=== PATIENT | female | born 1940 | race Caucasian/White ===

== ENCOUNTER → 2016-08-09 12:53 | Outpatient (CLI) | payer MEDICARE ==
[2014-02-04 07:46] VITALS: BMI 31.1
[~2016-08-09 12:53] MED LIST: AMBIEN10 MG PO; BENICAR HCT 20-1 TA1 PO; CARAFATE1 G PO; IMITREX50 MG PO; MULTI-DAY VITAM1 TAB PO; NORCO 10/325 TA1 TA1 PO; PHENERGAN25 M1 PO; PLAVIX75 MG PO; PRAVACHOL20 MG PO; PROTONIX20 MG PO; PROZAC40 MG PO; ZOFRAN ODT4 MG/UDTAB PO
== END | disposition home or self-care (01) ==
LOC: D.CT 12:53
DX: Z12.31 Encounter for screening mammogram for malignant neoplasm of breast (principal); K58.9 Irritable bowel syndrome, unspecified; G47.30 Sleep apnea, unspecified

== ENCOUNTER → 2016-08-23 19:39 | Outpatient (CLI) | payer MEDICARE ==
[2014-02-04 07:46] VITALS: BMI 31.1
== END | disposition home or self-care (01) ==
LOC: D.SLEEP 19:39
DX: G47.30 Sleep apnea, unspecified (principal)

== ENCOUNTER → 2016-08-29 16:32 | Outpatient (CLI) | payer MEDICARE ==
[2014-02-04 07:46] VITALS: BMI 31.1
== END | disposition home or self-care (01) ==
LOC: D.MAMMO 13:30
DX: Z12.31 Encounter for screening mammogram for malignant neoplasm of breast (principal)

== ENCOUNTER → 2016-11-16 08:28 | Outpatient (CLI) | payer MEDICARE ==
[2014-02-04 07:46] VITALS: BMI 31.1
== END | disposition home or self-care (01) ==
LOC: D.CT 08:00
DX: R10.9 Unspecified abdominal pain (principal)

== ENCOUNTER → 2017-05-02 07:53 | Outpatient (CLI) | payer MEDICARE ==
[2014-02-04 07:46] VITALS: BMI 31.1
[~2017-05-02 07:53] MED LIST changes: +ARICEPT10 MG PO; +ATIVAN1 MG PO; +CLARITIN 10 MG10 MG PO; +CYMBALTA60 MG PO; +DICLOFENAC SODIUM; +FEXOFENADINE H180 MG PO; +GABAPENTIN100 MG PO; +NORVASC2.5 MG PO; +ZOVIRAX800 MG PO
[2017-05-02 08:56] LABS: ALBUMIN 3.4 g/dL (3.4-5.0); BILIRUBIN - DIRECT 0.06 mg/dL (0.00-0.30); BILIRUBIN - INDIRECT 0.24 mg/dL (0.00-1.00); BILIRUBIN - TOTAL 0.3 mg/dL (0.2-1.3); PROTEIN - SERUM 7.1 g/dL (6.4-8.2)
== END | disposition home or self-care (01) ==
LOC: D.US 07:53
PROVIDERS: Internal Medicine Gastroenterology
DX: K76.0 Fatty (change of) liver, not elsewhere classified (principal)

== ENCOUNTER 2017-05-21 02:20 | Inpatient (IN) | payer MEDICARE ==
[~2017-05-21 02:20] MED LIST changes: -ARICEPT10 MG PO; -ATIVAN1 MG PO; -CLARITIN 10 MG10 MG PO; -CYMBALTA60 MG PO; -DICLOFENAC SODIUM; -FEXOFENADINE H180 MG PO; -GABAPENTIN100 MG PO; -NORVASC2.5 MG PO; -ZOVIRAX800 MG PO
[2017-05-21 03:02] LABS: BASOPHILS 0.3 % (0-2); EOSINOPHILS 0.8 % (0-7); HEMATOCRIT 42.2 % (36.0-48.0); HEMOGLOBIN 14.3 g/dL (12-16); IMMATURE GRANULOCYTES 0.3 % (0-5); LYMPHOCYTES 12.1 % (15-50); MCH 32.4 pg (26.0-34.0); MCHC 33.9 g/dL (31.0-37.0); MCV 95.5 fL (80.0-100.0); MEAN PLATELET VOLUME 8.9 fL (7.4-10.4); MONOCYTES 7.7 % (2-11); NEUTROPHILS 78.8 % (40-80); PLATELET COUNT 189 10x3/uL (130-400); RBC 4.42 10x6/uL (4.00-5.40); RDW 12.2 % (11.5-14.5); WBC 7.3 10x3/uL (4.8-10.8)
[2017-05-21 03:17] LABS: APTT 31.3 SECONDS (22.8-39.4); INR 0.9 (0.85-1.17)
[2017-05-21 03:21] LABS: ALBUMIN 3.4 g/dL (3.4-5.0); ALKALINE PHOSPHATASE 57 U/L (46-116); ALT (SGPT) 39 U/L (10-68); BILIRUBIN - TOTAL 0.16 mg/dL (0.2-1.3); CALC OSMOLALITY 280 mosm/kg (275-300); CALCIUM 8.8 mg/dL (8.5-10.1); CARBON DIOXIDE 31.8 mmol/L (21.0-32.0); CHLORIDE - SERUM 105 mmol/L (98-107); CREATININE - SERUM 0.9 mg/dL (0.6-1.3); GLUCOSE 133 mg/dL (74-106); POTASSIUM - SERUM 4.5 mmol/L (3.5-5.1); PROTEIN - SERUM 7.3 g/dL (6.4-8.2); SODIUM 140 mmol/L (136-145); UREA NITROGEN 12 mg/dL (7-18); eGFR NON AFRICAN AMERICAN 65 mL/min (90-120)
[2017-05-21 03:32] LABS: CKMB 0.5 U/L (0.0-3.6); CREATINE KINASE 53 UL (21-215)
[2017-05-21 03:34] LABS: TROPONIN-I < 0.017 ng/mL (0.000-0.060)
[2017-05-21 03:58] LABS: PHOSPHOROUS 3.6 mg/dL (2.5-4.9)
--- NOTE | 2017-05-21 05:54 | NUR ---
PT ARRIVED VIA STRETCHER TO ROOM 2113 AT 0540 HRS. PT DENIED ANY DISCOMFOFT. FAMILY AND PT STATED SHE HAS ACTIVE SHINGLES IN HER L EYE. STATED ER WS INFORMED. PT TRANSFERRED TO ROOM 2139. RATIONALE EXPLAINED TO PT AND FAMILY. WILL CONTINUE TO MONITOR.
[2017-05-21 06:08] VITALS: BP 162/71; BMI 22.7
[2017-05-21] MEDS ORDERED: ATIVAN1 MG PO (06:30)
[2017-05-21] MEDS ORDERED: CLARITIN 10 MG10 MG PO (06:30)
[2017-05-21] MEDS ORDERED: CYMBALTA60 MG PO (06:31)
[2017-05-21] MEDS ORDERED: ARICEPT10 MG PO (06:32)
[2017-05-21] MEDS ORDERED: ZOVIRAX800 MG PO (06:33)
[2017-05-21] MEDS ORDERED: DICLOFENAC SODIUM (06:50)
[2017-05-21 08:21] VITALS: BP 151/62
[2017-05-21 10:24] LABS: TROPONIN-I 0.056 ng/mL (0.000-0.060)
[2017-05-21 10:26] LABS: CREATINE KINASE 5 UL (21-215)
[2017-05-21 12:26] VITALS: BP 136/58
[2017-05-21 15:58] VITALS: BP 174/73
--- NOTE | 2017-05-21 16:12 | HP ---
PATIENT: MIL SCHULTZ MEDICAL RECORD: [id number] ACCOUNT: [id number] LOCATION:[address] : 42 ADMISSION DATE: 05/21/17 HISTORY AND PHYSICAL EXAMINATION HISTORY OF PRESENT ILLNESS: A 76-year-old white female presented to the Emergency Room upon day of admission with a closed head injury. The patient was in her usual state of health. She has had difficult time with shingles in the left eye that has been bothering her for the last week. She has been to the walk-in clinic several times, had some medication for this and states that she has had severe trigeminal pain in the left eye and has had increasing cough. The patient has had difficult time sleeping and whenever she stood up, this morning, she had a syncopal episode, felt dizzy, did fall and passed out. She is denying having heart palpitations at times, but she has had several episodes of near syncope and heart palpitations over the last month. The patient states she did feel weak, no incontinence did occur, no seizure activity. The patient was able to get a family member present to be able to bring her in and be further evaluated. CT of the head was done in the Emergency Room and further evaluation and the patient admitted to the floor for further evaluation and syncope. PAST MEDICAL HISTORY: Significant for migraines, TIA, vision changes, diet-controlled diabetes, hypertension, hyperlipidemia, GERD, depression, dementia, insomnia and hyperlipidemia. PAST SURGICAL HISTORY: Includes cataracts, partial removal on the left. She also has had appendectomy, tonsillectomy, hysterectomy, hemorrhoid surgery and bladder suspension multiple times. ALLERGIES: THE PATIENT IS ALLERGIC TO DILAUDID. MEDICATIONS: As listed in the MAR sheet. REVIEW OF SYSTEMS: Indicates no fever or chills. No chest pain, no shortness of breath. She has had some cough. No seizure activity, no incontinence. PHYSICAL EXAMINATION: VITAL SIGNS: At the time of history and physical is as below. GENERAL: She is a well-developed and well-nourished, anxious, tearful 76-year-old white female that is resting comfortably. HEENT: Has evidence of some erythema to the left eye. Pupils are otherwise equal, round and reactive to light. Extraocular movements are intact. Oral cavity and oropharynx otherwise clear. NECK: No cervical or pharyngeal. No nuchal rigidity. LUNGS: Coarse breath sounds, but otherwise clear. HEART: Regular rate and rhythm with / systolic ejection murmur. ABDOMEN: Soft, nontender, positive bowel sounds. No hepatosplenomegaly and no masses. EXTREMITIES: Arthritic changes noted. Trace edema in bilateral lower extremities. NEUROLOGIC: She is able to move all 4 extremities. Cranial nerves II through XII are grossly intact, some dizziness present. She has bruising on her left chin and a healing recent superficial laceration to her scalp. ASSESSMENT: HISTORY AND PHYSICAL [id number] MIL SCHULTZ 1. Syncope. 2. Atypical chest pain. 3. Recurrent nausea. 4. Abdominal pain. 5. Depression. 6. Mild dementia. PLAN: The patient will be restricted from driving in future at the present time. Cardiology evaluation obtained. We will change full liquid diet, IV fluids. Check laboratory appropriately. TRANSINT:[id number] Voice Confirmation ID: [id number] DOCUMENT ID: [id number] SALMA FONG MD at 1612 CC: [id number] DICTATION DATE: 05/21/17 1432 AOC OPERATIONS INTELLIGENCE OFFICER: 05/21/17 1506 ADM IN [facility] [address] [place] [address]
[2017-05-21 16:34] LABS: CKMB 1.2 U/L (0.0-3.6); CREATINE KINASE 64 UL (21-215)
[2017-05-21 16:42] LABS: TROPONIN-I < 0.017 ng/mL (0.000-0.060)
[2017-05-21 18:23] LABS: ALBUMIN 3.2 g/dL (3.4-5.0); BILIRUBIN - TOTAL 0.2 mg/dL (0.2-1.3); CALCIUM 8.5 mg/dL (8.5-10.1); CREATININE - SERUM 0.8 mg/dL (0.6-1.3); PROTEIN - SERUM 6.5 g/dL (6.4-8.2)
[2017-05-21 18:35] LABS: ANION GAP 10.8 mmol/L (8-16); POTASSIUM - SERUM 3.8 mmol/L (3.5-5.1)
[2017-05-21 19:00] VITALS: BP 187/82
--- NOTE | 2017-05-21 20:08 | NUR ---
PT IN BED RESTING QUEITLY. C/O N/V, PRN ZOFRAN GIVEN IV. DENIES ANY OTHER NEEDS AT THIS TIME. BED IN LOW POSITION, CALL LIGHT WITHIN REACH.
[2017-05-21 21:59] LABS: CKMB 1.1 U/L (0.0-3.6); CREATINE KINASE 66 UL (21-215); TROPONIN-I < 0.017 ng/mL (0.000-0.060)
--- NOTE | 2017-05-21 23:50 | NUR ---
PT C/O N/V. PT HAS NOT VOMITED BUT IS DRY HEAVING. TOLD PT THAT SHE IS NOT DUE FOR MORE ZOFRAN YET BUT THAT I WILL GET IT TO HER SOON POSSIBLE. PT STATED UNDERSTANDING. PT STATED SHE WOULD TRY DRINKING SOME SPRITE TO SEE IF IT WOULD HELP. GAVE PT COOL RAG. CHANGED PTS BEDDING DUE TO INCONTINENCE CAUSED BY THE DRY-HEAVING. DENIES ANY OTHER NEEDS AT THIS TIME. WILL CTM. BED IN LOW POSITION, CALL LIGHT WITHIN REACH.
[2017-05-22] VITALS: BP 142/85
[2017-05-22 04:00] VITALS: BP 164/62
[2017-05-22 04:24] LABS: BASOPHILS 0.4 % (0-2); EOSINOPHILS 0.9 % (0-7); HEMATOCRIT 41.5 % (36.0-48.0); HEMOGLOBIN 14.2 g/dL (12-16); LYMPHOCYTES 19.5 % (15-50); MCH 32.1 pg (26.0-34.0); MCHC 34.2 g/dL (31.0-37.0); MCV 93.9 fL (80.0-100.0); MEAN PLATELET VOLUME 8.9 fL (7.4-10.4); MONOCYTES 5.5 % (2-11); NEUTROPHILS 73.7 % (40-80); PLATELET COUNT 188 10x3/uL (130-400); RBC 4.42 10x6/uL (4.00-5.40); RDW 12.4 % (11.5-14.5)
[2017-05-22 04:31] LABS: WBC 5.3 10x3/uL (4.8-10.8)
[2017-05-22 04:57] LABS: ANION GAP 9.6 mmol/L (8-16); BILIRUBIN - TOTAL 0.29 mg/dL (0.2-1.3); CALCIUM 8.4 mg/dL (8.5-10.1); CARBON DIOXIDE 29.3 mmol/L (21.0-32.0); CREATININE - SERUM 0.8 mg/dL (0.6-1.3); MAGNESIUM - SERUM 1.9 mg/dL (1.8-2.4); PHOSPHOROUS 3.6 mg/dL (2.5-4.9); POTASSIUM - SERUM 3.9 mmol/L (3.5-5.1); PROTEIN - SERUM 6.8 g/dL (6.4-8.2); THYROID STIMULATING HORMONE 0.68 uIU/mL (0.36-3.74)
--- NOTE | 2017-05-22 07:44 | NUR ---
AM ROUNDING- RECEIVED REPORT FROM DISPENSING OPERATOR NURSE. PT IS CURRENTLY LAYING IN BED ON LEFT SIDE WITH EYES CLOSED RESTING. CURRENTLY IN AIRBORNE ISOLATION FOR SHINGLES PER REPORT. ON ROOM AIR. ON MONITOR SHOWING SR, HR 63. IV SEEN TO RIGHT AC WITH NS RUNNING AT 60CC. NO NEED AT THIS CURRENT TIME. WILL CONTINUE TO MONITOR AND CONTINUE WITH PLAN OF CARE.
[2017-05-22 08:11] VITALS: BP 143/67
--- NOTE | 2017-05-22 10:29 | NUR ---
PAGED LOBITO GARDNER TO SEE ABOUT RESTARTING PTS HOME MEDICATION EYE DROPS FOR LEFT EYE (SHINGLES). PT IS IN PAIN AND IS WANTING SOMETHING TO HELP RELIEVE PAIN. WILL AWAIT CALLBACK AND CONTINUE TO MONITOR.
--- NOTE | 2017-05-22 10:35 | NUR ---
RECEIVED CALLBACK FROM LOBITO GARDNER. LOBITO GARDNER STATES THAT IT IS OKAY FOR PT TO TAKE HOME EYE DROPS PRESCRIBED. LOBITO GARDNER ALSO GIVES ORDER TO CHANGE PTS PRN ZOFRAN ORDER TO EVERY 4 HOURS NEEDED. WILL PUT ORDERS IN GIVEN.
[2017-05-22 11:55] VITALS: BP 179/69
--- NOTE | 2017-05-22 12:54 | NUR ---
THIS NURSE ASSISTED PT TO BATHROOM (PT IS WEAK DUE TO N/V). PT ENCOURAGED TO USE BATHROOM LIGHT WHEN FINISHED SO STAFF CAN ASSIST HER BACK TO BED. PT AGREES. WILL CONTINUE TO MONITOR.
--- NOTE | 2017-05-22 16:42 | NUR ---
SCDS BROUGHT TO PTS ROOM ORDERED. PT IS CURRENTLY SITTING UP IN CHAIR VISITING WITH FRIEND. WILL PLACE SCDS ON PT ONCE PT GETS BACK TO BED.
--- NOTE | 2017-05-22 18:10 | NUR ---
PT IS CURRENTLY SITTING UP IN CHAIR EATING DINNER. FAMILY MEMBERS (DAUGHTER) AND GUEST ARE AT BEDSIDE. PT DENIES ANY NEED AT THIS TIME. WILL CONTINUE TO MONITOR.
[2017-05-22 19:00] VITALS: BP 180/66
--- NOTE | 2017-05-22 19:32 | NUR ---
PT AWAKE, ALERT, ORIENTED, TALKING ON CELL PHONE, DENIES ANY NEEDS. CONTINUE TO MONITOR CLOSELY. BED LOW, CALL LIGHT IN REACH, SIDE RAILS X 2, HOB 30 DEGREES.
[2017-05-23] VITALS: BP 150/72
[2017-05-23 04:00] VITALS: BP 152/75
[2017-05-23 05:49] LABS: BASOPHILS 0.4 % (0-2); EOSINOPHILS 2.9 % (0-7); HEMATOCRIT 42.1 % (36.0-48.0); HEMOGLOBIN 14.4 g/dL (12-16); IMMATURE GRANULOCYTES 0.2 % (0-5); LYMPHOCYTES 29.7 % (15-50); MCH 32.4 pg (26.0-34.0); MCHC 34.2 g/dL (31.0-37.0); MCV 94.6 fL (80.0-100.0); MEAN PLATELET VOLUME 9.1 fL (7.4-10.4); MONOCYTES 10.7 % (2-11); NEUTROPHILS 56.1 % (40-80); PLATELET COUNT 202 10x3/uL (130-400); RBC 4.45 10x6/uL (4.00-5.40); RDW 12.6 % (11.5-14.5); WBC 4.9 10x3/uL (4.8-10.8)
[2017-05-23 05:57] LABS: ALBUMIN 3.1 g/dL (3.4-5.0); ANION GAP 8.9 mmol/L (8-16); BILIRUBIN - TOTAL 0.3 mg/dL (0.2-1.3); CALCIUM 8.8 mg/dL (8.5-10.1); CARBON DIOXIDE 31.6 mmol/L (21.0-32.0); CREATININE - SERUM 0.8 mg/dL (0.6-1.3); POTASSIUM - SERUM 3.5 mmol/L (3.5-5.1)
[2017-05-23 06:49] VITALS: BMI 28.1
--- NOTE | 2017-05-23 07:15 | NUR ---
REPORT RECEIVED. RR EVEN AND UNLABORED, DIPLOMATIC COURIER AT BEDSIDE ASSISTING PT TO BATHROOM. PT REPORTS FEELING "BETTER" THIS MORNING. WILL CTM.
[2017-05-23 07:45] VITALS: BP 163/76
--- NOTE | 2017-05-23 10:07 | EC ---
PATIENT:MIL SCHULTZ DATE OF SERVICE: 05/21/17 SEX: F MEDICAL RECORD: [id number] DATE OF : 42 LOCATION:D. D.214 AGE OF PATIENT: 76 ADMISSION DATE: 05/22/17 REFERRING PHYSICIAN: INTERPRETING PHYSICIAN: AMILCAR PIERRE MD ECHOCARDIOGRAM REPORT ECHO CHARGES 4 ECHO COMPLETE CLINICAL DIAGNOSIS: ECHOCARDIOGRAPHIC MEASUREMENTS (adult normal given) AC root (d.<3.7cm) 2.6 cm LV Septum d (<1.2 cm> 1.2 cm Valve Excursion 1.6 cm LV Septum (systole) 1.8 cm Left Atria (s.<4.0cm> 4.1 cm LVPW d(<1.2cm) 1.1 cm RV (d.<2.3cm) 2.5 cm LVPW (sytole) 1.8 cm LV diastole(<5.6CM) 5.1 cm MV E-F(>70mm/sec) cm LV systole 3.1 cm LVOT Diameter 1.7 cm MV exc.(>10mm) cm Est.ejection fraction (50-75%) % Pericardial Effusion N DOPPLER: LVIT cm/sec A 59.0 cm/sec E 45.0 cm/sec LA cm/sec RVSP 44.0 mmHg LVOT 101 cm/sec AOP1/2T m/s Asc. Ao 147 cm/sec RVOT 52.0 cm/sec RA cm/sec PA 79.0 cm/sec AV Gradient Peak 8.7 mmHg AV Mean 4.6 mmHg AV Area 1.5 cm MV Gradient Peak 5.1 mmHg MV Mean 1.9 mmHg MV Area cm COMMENTS: Loom Changeover Operator: Shanique ESPINOZA COVERT Supervisor Hide House: Armin Pierre TAPE# PACS DATE OF SERVICE: 05/21/2017 PROCEDURE: Transthoracic echocardiogram. FINDINGS: 1. Left ventricle is normal size, normal function. Ejection fraction is 60%. 2. The mitral valve normal structurally. There is mild mitral regurgitation. 3. The left atrium is mildly dilated. 4. The aortic valve is normal. 5. Tricuspid valve has mild tricuspid regurgitation with an RVSP of 30 mmHg. ECHOCARDIOGRAM REPORT [id number] MIL SCHULTZ 6. The pulmonic valve has trace pulmonic insufficiency. 7. The right atrium is normal. 8. The right ventricle is normal. CONCLUSIONS: The patient has a structurally fairly normal heart. The inflow characteristics are consistent with mild diastolic dysfunction, otherwise no significant valvular or regional wall motion abnormalities. TRANSINT:[id number] Voice Confirmation ID: [id number] DOCUMENT ID: [id number] AMILCAR PIERRE MD at 1007 CC: [id number] DICTATION DATE: 05/21/17 1557 PRESIDENT SALES AND MARKETING: 05/21/17 191 ADM IN [place] [id number] [place] [id number]
[2017-05-23 12:53] VITALS: BP 160/73
[2017-05-23 16:07] VITALS: BP 178/86
[2017-05-23] MEDS ORDERED: FEXOFENADINE H180 MG PO (16:14)
[2017-05-23] MEDS ORDERED: GABAPENTIN100 MG PO (16:15)
[2017-05-23] MEDS ORDERED: NORVASC2.5 MG PO (16:15)
--- NOTE | 2017-05-23 18:45 | NUR ---
PT DISCHARGED. RR EVEN AND UNLABORED. D/C INSTRUCTIONS GIVEN AND SIGNED. PT VERBALIZED UNDERSTANDING. 3 PRESCRIPTIONS GIVEN TO PT. TELE REMOVED AND RETURNED TO ROUGH RIB GRADER. IV CATHETER REMOVED WITH CATHETER TIP INTACT. PT DENIES FURTHER NEEDS. WILL CALL WHEN TRANSPORT ARRIVES.
--- NOTE | 2017-06-26 10:49 | DS ---
PATIENT:MIL SCHULTZ :44 MEDICAL RECORD: [id number] DISCHARGE SUMMARY ADMISSION DATE: 05/22/17 DISCHARGE DATE: 05/23/17 This is a discharge dated 05/23/2017 from the inpatient hospital. DISCHARGE DIAGNOSES: 1. Dizziness. 2. Syncope. 3. Chest pain. 4. Left trigeminal neuralgia. 5. Mild dementia. 6. Hypertension. 7. Migraines. 8. Hyperlipidemia. 9. Gastroesophageal reflux disease. 10. Depression. CONSULTS THIS HOSPITALIZATION: 1. Cardiology with Oliverio Roy MD 2. Neurology with Sal Pat MD HOSPITAL COURSE: Full H&P is located elsewhere on the chart on this 76-year-old female who was admitted for evaluation of syncope and chest pain. Cardiology was consulted and she was seen by Dr. Roy. Echocardiogram was done with an EF of 60% and RVSP of 30. He felt that no further cardiology intervention was necessary, but recommended telemetry monitoring. She had no cardiac events. She was started on gabapentin for neuralgia-type pain. She continued on appropriate home medications. Electrolytes were managed by protocol. Her pain resolved with low-dose gabapentin. Dr. Pat from neurology felt this was left trigeminal neuralgia and recommended clinical observation. She was considered stable for discharge on 05/23/2017. DISCHARGE MEDICATIONS: As per discharge medication reconciliation. DISCHARGE DISPOSITION: The patient is discharged home. She will continue her current diet and level of activity. She will follow up with primary care in 2 weeks and be seen by [facility] house calls. She will follow up with specialists as directed. At least 30 minutes was spent in this discharge activity. TRANSINT:[id number] Voice Confirmation ID: [id number] DOCUMENT ID: [id number] Dictated By: LORIE FERNANDEZ I have interviewed/examined the above patient and agree with these documented findings. DISCHARGE SUMMARY REPORT [id number] MIL SCHULTZ MICHAEL MD at 1358 at 1049 CC: [id number] DICTATION DATE: 06/17/17 1559 SAW FEEDER: 06/17/17 1824 DIS IN 05/23/17 [place] [id number] [place] [address]
== END 2017-05-23 21:13 | disposition home or self-care (01) | DRG 74 ==
LOC: D.ER 02:20 → D.M2 05:10 → OBSVTIME 05:10 → D.M2 05:53
PROVIDERS: Emergency Medicine; ADMIT Family Medicine
DX: G50.0 Trigeminal neuralgia (principal); E11.9 Type 2 diabetes mellitus without complications; I10 Essential (primary) hypertension; E78.5 Hyperlipidemia, unspecified; K21.9 Gastro-esophageal reflux disease without esophagitis; F03.90 Unspecified dementia, unspecified severity, without behavioral disturbance, psychotic disturbance, mood disturbance, and anxiety; F32.9 Major depressive disorder, single episode, unspecified; S00.83XA Contusion of other part of head, initial encounter; W19.XXXA Unspecified fall, initial encounter; G47.00 Insomnia, unspecified; Z86.73 Personal history of transient ischemic attack (TIA), and cerebral infarction without residual deficits

== ENCOUNTER → 2017-11-14 09:20 | Outpatient (CLI) | payer MEDICARE ==
[~2017-11-14 09:20] MED LIST changes: +ARICEPT10 MG PO; +ATIVAN1 MG PO; +CLARITIN 10 MG10 MG PO; +CYMBALTA60 MG PO; +DICLOFENAC SODIUM; +FEXOFENADINE H180 MG PO; +GABAPENTIN100 MG PO; +NORVASC2.5 MG PO; +ZOVIRAX800 MG PO
[2017-11-14 10:41] LABS: ALBUMIN 3.6 g/dL (3.4-5.0); BILIRUBIN - DIRECT 0.12 mg/dL (0.00-0.30); BILIRUBIN - INDIRECT 0.32 mg/dL (0.00-1.00); BILIRUBIN - TOTAL 0.44 mg/dL (0.2-1.3); PROTEIN - SERUM 7.1 g/dL (6.4-8.2)
== END | disposition home or self-care (01) ==
LOC: D.US 11-01 09:30 → D.LAB 11-01 10:00 → D.US 09:20
PROVIDERS: Internal Medicine Gastroenterology
DX: K76.0 Fatty (change of) liver, not elsewhere classified (principal)

== ENCOUNTER → 2018-02-08 10:14 | Outpatient (CLI) | payer MEDICARE ==
[~2018-02-08 10:14] MED LIST changes: +CELEXA20 MG PO; +COZAAR25 MG PO; +COZAAR50 MG PO; +RANITIDINE HCL150 M1 PO
== END | disposition home or self-care (01) ==
LOC: D.CT 10:14
DX: M54.5 Low back pain (principal)

== ENCOUNTER 2018-03-13 15:44 | Emergency (ER) | payer MEDICARE ==
[~2018-03-13] VITALS: Ht 157.5 cm; Wt 70.9 kg
[~2018-03-13 15:44] MED LIST changes: -CELEXA20 MG PO; -COZAAR25 MG PO; -COZAAR50 MG PO; -RANITIDINE HCL150 M1 PO
[2018-03-13 16:02] VITALS: Ht 157.5 cm; Wt 70.9 kg
[2018-03-13 16:25] LABS: BASOPHILS 0.9 % (0-2); EOSINOPHILS 3.7 % (0-7); HEMATOCRIT 39.7 % (36.0-48.0); HEMOGLOBIN 13.9 g/dL (12-16); IMMATURE GRANULOCYTES 0.2 % (0-5); LYMPHOCYTES 32.5 % (15-50); MCH 32.5 pg (26.0-34.0); MCV 92.8 fL (80.0-100.0); MEAN PLATELET VOLUME 8.9 fL (7.4-10.4); NEUTROPHILS 52.7 % (40-80); PLATELET COUNT 182 10x3/uL (130-400); RBC 4.28 10x6/uL (4.00-5.40); WBC 5.4 10x3/uL (4.8-10.8)
[2018-03-13 17:03] LABS: ALBUMIN 3.7 g/dL (3.4-5.0); ALKALINE PHOSPHATASE 46 U/L (46-116); ALT (SGPT) 34 U/L (10-68); BILIRUBIN - TOTAL 0.37 mg/dL (0.2-1.3); CALC OSMOLALITY 269 mosm/kg (275-300); CALCIUM 8.6 mg/dL (8.5-10.1); CARBON DIOXIDE 28.8 mmol/L (21.0-32.0); CHLORIDE - SERUM 97 mmol/L (98-107); GLUCOSE 91 mg/dL (74-106); POTASSIUM - SERUM 4.4 mmol/L (3.5-5.1); PROTEIN - SERUM 7.6 g/dL (6.4-8.2); SODIUM 134 mmol/L (136-145); UREA NITROGEN 17 mg/dL (7-18); eGFR NON AFRICAN AMERICAN 57 mL/min (90-120)
[2018-03-13 17:15] LABS: CKMB 0.8 U/L (0.0-3.6); CREATINE KINASE 46 UL (21-215); MAGNESIUM - SERUM 1.9 mg/dL (1.8-2.4); THYROID STIMULATING HORMONE 1.27 uIU/mL (0.36-3.74); TROPONIN-I < 0.017 ng/mL (0.000-0.060)
[2018-03-13 18:42] VITALS: BP 144/63
== END 2018-03-13 18:43 | disposition home or self-care (01) ==
LOC: D.ER 15:44
PROVIDERS: Family Medicine
DX: R42 Dizziness and giddiness (principal); H53.8 Other visual disturbances; I10 Essential (primary) hypertension; F03.90 Unspecified dementia, unspecified severity, without behavioral disturbance, psychotic disturbance, mood disturbance, and anxiety; I45.10 Unspecified right bundle-branch block

== ENCOUNTER 2018-04-12 15:25 | Inpatient (IN) | payer MEDICARE ==
[~2018-04-12] VITALS: Ht 157.5 cm; Wt 72.7 kg
[2018-04-12 16:20] LABS: BASOPHILS 0.9 % (0-2); EOSINOPHILS 2.9 % (0-7); HEMOGLOBIN 13.3 g/dL (12-16); LYMPHOCYTES 23.3 % (15-50); MCH 32.8 pg (26.0-34.0); MCV 93.8 fL (80.0-100.0); MEAN PLATELET VOLUME 8.9 fL (7.4-10.4); MONOCYTES 7.8 % (2-11); NEUTROPHILS 65.1 % (40-80); PLATELET COUNT 191 10x3/uL (130-400); RBC 4.05 10x6/uL (4.00-5.40); RDW 12.7 % (11.5-14.5); WBC 4.5 10x3/uL (4.8-10.8)
[2018-04-12 16:48] LABS: ALBUMIN 3.4 g/dL (3.4-5.0); ANION GAP 13.2 mmol/L (8-16); BILIRUBIN - TOTAL 0.28 mg/dL (0.2-1.3); CALCIUM 8.6 mg/dL (8.5-10.1); CARBON DIOXIDE 28.6 mmol/L (21.0-32.0); CREATININE - SERUM 1.1 mg/dL (0.6-1.3); POTASSIUM - SERUM 3.8 mmol/L (3.5-5.1); PROTEIN - SERUM 7.1 g/dL (6.4-8.2)
[2018-04-12 16:56] LABS: THYROID STIMULATING HORMONE 2.58 uIU/mL (0.36-3.74)
[2018-04-12 20:00] VITALS: BP 165/83
[2018-04-12 20:14] VITALS: Ht 157.5 cm; Wt 72.7 kg
[2018-04-12] MEDS ORDERED: RANITIDINE HCL150 M1 PO (20:47)
[2018-04-12] MEDS ORDERED: CELEXA20 MG PO (20:48)
[2018-04-13] VITALS (7 sets, daily range): BP systolic 135–174; BP diastolic 42–88
[2018-04-13] MEDS ORDERED: COZAAR50 MG PO (03:02)
[2018-04-13 06:01] LABS: BASOPHILS 0.7 % (0-2); EOSINOPHILS 4.6 % (0-7); HEMATOCRIT 36.6 % (36.0-48.0); HEMOGLOBIN 12.5 g/dL (12-16); IMMATURE GRANULOCYTES 0.2 % (0-5); LYMPHOCYTES 37.8 % (15-50); MCH 32.2 pg (26.0-34.0); MCHC 34.2 g/dL (31.0-37.0); MCV 94.3 fL (80.0-100.0); MEAN PLATELET VOLUME 8.9 fL (7.4-10.4); NEUTROPHILS 46.7 % (40-80); PLATELET COUNT 193 10x3/uL (130-400); RBC 3.88 10x6/uL (4.00-5.40); RDW 12.8 % (11.5-14.5); WBC 4.1 10x3/uL (4.8-10.8)
[2018-04-13 06:06] LABS: ANION GAP 12.2 mmol/L (8-16); CALCIUM 8.1 mg/dL (8.5-10.1); POTASSIUM - SERUM 4.2 mmol/L (3.5-5.1)
[2018-04-13 17:12] LABS: CKMB 0.9 U/L (0.0-3.6); CREATINE KINASE 52 UL (21-215)
[2018-04-13 17:13] LABS: TROPONIN-I < 0.017 ng/mL (0.000-0.060)
[2018-04-13 22:43] LABS: CKMB 0.8 U/L (0.0-3.6); CREATINE KINASE 48 UL (21-215); TROPONIN-I < 0.017 ng/mL (0.000-0.060)
[2018-04-14 04:00] VITALS: BP 154/63
[2018-04-14 06:45] LABS: BASOPHILS 0.6 % (0-2); EOSINOPHILS 4.3 % (0-7); HEMATOCRIT 37.7 % (36.0-48.0); HEMOGLOBIN 12.9 g/dL (12-16); MCH 32.3 pg (26.0-34.0); MCHC 34.2 g/dL (31.0-37.0); MCV 94.3 fL (80.0-100.0); MONOCYTES 8.9 % (2-11); NEUTROPHILS 53.2 % (40-80); PLATELET COUNT 191 10x3/uL (130-400); RDW 12.7 % (11.5-14.5); WBC 4.6 10x3/uL (4.8-10.8)
[2018-04-14 07:20] LABS: CALCIUM 8.1 mg/dL (8.5-10.1); CARBON DIOXIDE 28.7 mmol/L (21.0-32.0); CHLORIDE - SERUM 105 mmol/L (98-107); CKMB 0.6 U/L (0.0-3.6); CREATINE KINASE 44 UL (21-215); CREATININE - SERUM 0.8 mg/dL (0.6-1.3); GLUCOSE 93 mg/dL (74-106); SODIUM 143 mmol/L (136-145); eGFR NON AFRICAN AMERICAN 74 mL/min (90-120)
[2018-04-14 07:28] LABS: CALC OSMOLALITY 283 mosm/kg (275-300); TROPONIN-I < 0.017 ng/mL (0.000-0.060); UREA NITROGEN 9 mg/dL (7-18)
[2018-04-14 08:58] VITALS: BP 174/80
[2018-04-14 11:37] VITALS: BP 155/66
[2018-04-14 16:02] VITALS: BP 163/69
[2018-04-14 20:30] VITALS: BP 161/83
[2018-04-15 04:30] VITALS: BP 173/72
[2018-04-15 07:43] LABS: BASOPHILS 0.7 % (0-2); EOSINOPHILS 4.9 % (0-7); HEMATOCRIT 37.7 % (36.0-48.0); LYMPHOCYTES 35.9 % (15-50); MCH 32.7 pg (26.0-34.0); MCHC 34.5 g/dL (31.0-37.0); MCV 94.7 fL (80.0-100.0); MONOCYTES 9.6 % (2-11); NEUTROPHILS 48.9 % (40-80); PLATELET COUNT 196 10x3/uL (130-400); RBC 3.98 10x6/uL (4.00-5.40); RDW 12.7 % (11.5-14.5); WBC 4.1 10x3/uL (4.8-10.8)
[2018-04-15 07:52] LABS: ANION GAP 12.3 mmol/L (8-16); CALCIUM 7.9 mg/dL (8.5-10.1); CARBON DIOXIDE 29.1 mmol/L (21.0-32.0); CREATININE - SERUM 0.8 mg/dL (0.6-1.3); POTASSIUM - SERUM 4.4 mmol/L (3.5-5.1)
[2018-04-15 08:58] VITALS: BP 183/82
[2018-04-15 12:02] VITALS: BP 135/66
[2018-04-15] MEDS ORDERED: COZAAR25 MG PO (15:14)
[2018-04-15 15:40] VITALS: BP 156/78
== END 2018-04-15 18:00 | disposition home or self-care (01) | DRG 918 ==
LOC: D.ER 15:25 → D.MS 17:46 → D.EDHOLD 17:46 → OBSVTIME 17:47 → D.MS 17:56 → D.M2 04-13 16:46 → D.MS 04-13 16:46 → D.M2 04-13 19:34
PROVIDERS: Family Medicine; Internal Medicine Nephrology
DX: T46.5X1A Poisoning by other antihypertensive drugs, accidental (unintentional), initial encounter (principal); R55 Syncope and collapse; I10 Essential (primary) hypertension; K21.9 Gastro-esophageal reflux disease without esophagitis; F03.90 Unspecified dementia, unspecified severity, without behavioral disturbance, psychotic disturbance, mood disturbance, and anxiety; D64.9 Anemia, unspecified; I95.9 Hypotension, unspecified

== ENCOUNTER 2018-04-23 10:15 | Observation (INO) | payer MEDICARE ==
[2018-04-23] VITALS (8 sets, daily range): BP systolic 113–156; BP diastolic 54–71
[~2018-04-23] VITALS: Ht 157.5 cm; Wt 7.3 kg
[~2018-04-23 10:15] MED LIST changes: +CELEXA20 MG PO; +COZAAR25 MG PO; +COZAAR50 MG PO; +RANITIDINE HCL150 M1 PO
[2018-04-23 12:54] LABS: BASOPHILS 0.5 % (0-2); EOSINOPHILS 2.2 % (0-7); HEMATOCRIT 37.3 % (36.0-48.0); HEMOGLOBIN 12.9 g/dL (12-16); IMMATURE GRANULOCYTES 0.2 % (0-5); LYMPHOCYTES 18.3 % (15-50); MCH 32.9 pg (26.0-34.0); MCHC 34.6 g/dL (31.0-37.0); MCV 95.2 fL (80.0-100.0); MEAN PLATELET VOLUME 8.7 fL (7.4-10.4); MONOCYTES 7.7 % (2-11); NEUTROPHILS 71.1 % (40-80); PLATELET COUNT 209 10x3/uL (130-400); RBC 3.92 10x6/uL (4.00-5.40); RDW 12.7 % (11.5-14.5); WBC 6.5 10x3/uL (4.8-10.8)
[2018-04-23 13:16] LABS: ALBUMIN 2.9 g/dL (3.4-5.0); ALKALINE PHOSPHATASE 52 U/L (46-116); ALT (SGPT) 24 U/L (10-68); CALC OSMOLALITY 277 mosm/kg (275-300); CALCIUM 8.7 mg/dL (8.5-10.1); CARBON DIOXIDE 32.5 mmol/L (21.0-32.0); CHLORIDE - SERUM 103 mmol/L (98-107); CREATINE KINASE 33 UL (21-215); CREATININE - SERUM 0.9 mg/dL (0.6-1.3); GLUCOSE 113 mg/dL (74-106); MAGNESIUM - SERUM 1.9 mg/dL (1.8-2.4); POTASSIUM - SERUM 4.8 mmol/L (3.5-5.1); PROTEIN - SERUM 7.1 g/dL (6.4-8.2); SODIUM 139 mmol/L (136-145); UREA NITROGEN 9 mg/dL (7-18); eGFR NON AFRICAN AMERICAN 65 mL/min (90-120)
[2018-04-23 13:17] LABS: TROPONIN-I < 0.017 ng/mL (0.000-0.060)
[2018-04-24 05:16] LABS: BASOPHILS 0.8 % (0-2); EOSINOPHILS 5.5 % (0-7); HEMATOCRIT 34.1 % (36.0-48.0); HEMOGLOBIN 11.7 g/dL (12-16); IMMATURE GRANULOCYTES 0.3 % (0-5); LYMPHOCYTES 24.7 % (15-50); MCH 32.2 pg (26.0-34.0); MCHC 34.3 g/dL (31.0-37.0); MCV 93.9 fL (80.0-100.0); MEAN PLATELET VOLUME 8.7 fL (7.4-10.4); MONOCYTES 9.7 % (2-11); PLATELET COUNT 202 10x3/uL (130-400); RBC 3.63 10x6/uL (4.00-5.40); RDW 12.3 % (11.5-14.5)
[2018-04-24 05:22] LABS: WBC 3.8 10x3/uL (4.8-10.8)
[2018-04-24 05:37] LABS: CARBON DIOXIDE 27.3 mmol/L (21.0-32.0); CHLORIDE - SERUM 103 mmol/L (98-107); CREATINE KINASE 36 UL (21-215); CREATININE - SERUM 0.9 mg/dL (0.6-1.3); MAGNESIUM - SERUM 1.7 mg/dL (1.8-2.4); SODIUM 139 mmol/L (136-145); TROPONIN-I < 0.017 ng/mL (0.000-0.060); UREA NITROGEN 10 mg/dL (7-18); eGFR NON AFRICAN AMERICAN 65 mL/min (90-120)
[2018-04-24 05:38] LABS: CALC OSMOLALITY 281 mosm/kg (275-300); GLUCOSE 180 mg/dL (74-106); POTASSIUM - SERUM 3.8 mmol/L (3.5-5.1)
[2018-04-24 07:09] VITALS: BP 117/55
[2018-04-24 09:00] VITALS: BP 158/64
[2018-04-24] MEDS ORDERED: COZAAR25 MG PO (09:41)
[2018-04-24] MEDS ORDERED: NEURONTIN 300300 MG PO (09:55)
[2018-04-24 12:12] VITALS: BP 154/67
[2018-04-24 13:30] VITALS: Ht 157.5 cm; Wt 7.3 kg
[2018-04-24 21:18] VITALS: BP 147/58
[2018-04-25] VITALS: BP 159/66
[2018-04-25 04:00] VITALS: BP 140/59
[2018-04-25 05:22] LABS: BASOPHILS 1.4 % (0-2); EOSINOPHILS 7.1 % (0-7); HEMATOCRIT 34.4 % (36.0-48.0); HEMOGLOBIN 11.9 g/dL (12-16); IMMATURE GRANULOCYTES 0.2 % (0-5); LYMPHOCYTES 29.5 % (15-50); MCH 32.3 pg (26.0-34.0); MCHC 34.6 g/dL (31.0-37.0); MCV 93.5 fL (80.0-100.0); MEAN PLATELET VOLUME 8.8 fL (7.4-10.4); NEUTROPHILS 50.8 % (40-80); PLATELET COUNT 213 10x3/uL (130-400); RBC 3.68 10x6/uL (4.00-5.40); RDW 12.3 % (11.5-14.5); WBC 4.4 10x3/uL (4.8-10.8)
[2018-04-25 05:49] LABS: ANION GAP 11.1 mmol/L (8-16); CALCIUM 8.1 mg/dL (8.5-10.1); CARBON DIOXIDE 27.9 mmol/L (21.0-32.0); CREATININE - SERUM 0.8 mg/dL (0.6-1.3)
[2018-04-25 08:36] VITALS: BP 164/68
[2018-04-25 11:41] VITALS: BP 145/42
== END 2018-04-25 12:35 | disposition home or self-care (01) ==
LOC: D.ER 10:15 → D.EDHOLD 14:18 → D.M2 14:18 → OBSVTIME 14:18 → D.M2 15:31
PROVIDERS: Emergency Medicine; Family Medicine; Internal Medicine Nephrology
DX: R55 Syncope and collapse (principal); I10 Essential (primary) hypertension; K21.9 Gastro-esophageal reflux disease without esophagitis; D64.9 Anemia, unspecified; F03.90 Unspecified dementia, unspecified severity, without behavioral disturbance, psychotic disturbance, mood disturbance, and anxiety

== ENCOUNTER → 2018-05-28 07:41 | Outpatient (CLI) | payer MEDICARE ==
[~2018-05-28 07:41] MED LIST changes: +NEURONTIN 300300 MG PO
[2018-05-28 08:40] LABS: ALBUMIN 3.3 g/dL (3.4-5.0); BILIRUBIN - DIRECT 0.08 mg/dL (0.00-0.30); BILIRUBIN - INDIRECT 0.09 mg/dL (0.00-1.00); BILIRUBIN - TOTAL 0.17 mg/dL (0.2-1.3); PROTEIN - SERUM 7.5 g/dL (6.4-8.2)
== END | disposition home or self-care (01) ==
LOC: D.LAB 05-16 09:15 → D.US 05-16 09:30
PROVIDERS: Internal Medicine Gastroenterology
DX: K76.0 Fatty (change of) liver, not elsewhere classified (principal)

== ENCOUNTER 2018-06-30 18:37 | Emergency (ER) | payer MEDICARE ==
[~2018-06-30] VITALS: Ht 157.5 cm; Wt 77.3 kg
[2018-06-30 18:47] VITALS: Ht 157.5 cm; Wt 77.3 kg
[2018-06-30 20:08] LABS: BASOPHILS 0.5 % (0-2); EOSINOPHILS 0.9 % (0-7); HEMOGLOBIN 13.2 g/dL (12-16); IMMATURE GRANULOCYTES 0.2 % (0-5); MCH 31.6 pg (26.0-34.0); MCHC 33.8 g/dL (31.0-37.0); MCV 93.3 fL (80.0-100.0); MEAN PLATELET VOLUME 8.7 fL (7.4-10.4); MONOCYTES 1.1 % (2-11); NEUTROPHILS 92.3 % (40-80); RBC 4.18 10x6/uL (4.00-5.40); RDW 12.4 % (11.5-14.5); WBC 4.4 10x3/uL (4.8-10.8)
[2018-06-30 20:11] LABS: PLATELET COUNT 140 10x3/uL (130-400)
[2018-06-30 20:24] LABS: ALBUMIN 3.1 g/dL (3.4-5.0); ANION GAP 10.4 mmol/L (8-16); BILIRUBIN - TOTAL 0.17 mg/dL (0.2-1.3); CALCIUM 8.4 mg/dL (8.5-10.1); POTASSIUM - SERUM 4.4 mmol/L (3.5-5.1); PROTEIN - SERUM 6.7 g/dL (6.4-8.2)
[2018-06-30 20:42] VITALS: BP 107/63
== END 2018-06-30 20:42 | disposition home or self-care (01) ==
LOC: D.ER 18:37
PROVIDERS: Family Medicine
DX: J40 Bronchitis, not specified as acute or chronic (principal); R53.81 Other malaise; R09.89 Other specified symptoms and signs involving the circulatory and respiratory systems; Z86.73 Personal history of transient ischemic attack (TIA), and cerebral infarction without residual deficits; E11.9 Type 2 diabetes mellitus without complications; I10 Essential (primary) hypertension; K21.9 Gastro-esophageal reflux disease without esophagitis

== ENCOUNTER → 2018-11-26 07:54 | Outpatient (CLI) | payer MEDICARE ==
[2018-11-26 09:07] LABS: ALBUMIN 3.4 g/dL (3.4-5.0); BILIRUBIN - DIRECT 0.07 mg/dL (0.00-0.30); BILIRUBIN - INDIRECT 0.28 mg/dL (0.00-1.00); BILIRUBIN - TOTAL 0.35 mg/dL (0.2-1.3); PROTEIN - SERUM 7.1 g/dL (6.4-8.2)
== END | disposition home or self-care (01) ==
LOC: D.US 07:54
PROVIDERS: Internal Medicine Gastroenterology
DX: K76.0 Fatty (change of) liver, not elsewhere classified (principal)

== ENCOUNTER 2019-01-27 08:00 | Outpatient (CLI) | payer MEDICARE ==
[2018-06-30 18:47] VITALS: BMI 31.1
== END 2019-01-27 23:59 | disposition home or self-care (01) ==
LOC: D.MAMMO 08:00
PROVIDERS: ATTEND Family Medicine
DX: Z12.31 Encounter for screening mammogram for malignant neoplasm of breast (principal)

== ENCOUNTER → 2019-06-10 08:00 | Outpatient (CLI) | payer MEDICARE ==
[~2019-06-10 08:00] MED LIST changes: +BACLOFEN10 MG PO; +PEPCID40 MG PO; +PROTONIX40 MG PO; +STERAPRED 5MG 125 MG PO; +TOPROL XL25 MG PO
[2019-06-10 10:11] LABS: ALBUMIN 3.5 g/dL (3.4-5.0); BILIRUBIN - DIRECT 0.08 mg/dL (0.00-0.30); BILIRUBIN - INDIRECT 0.36 mg/dL (0.00-1.00); BILIRUBIN - TOTAL 0.44 mg/dL (0.2-1.3); PROTEIN - SERUM 7.3 g/dL (6.4-8.2)
[2019-06-24 11:33] VITALS: BMI 33.0
== END | disposition home or self-care (01) ==
LOC: D.US 05-28 09:00 → D.LAB 05-28 09:30 → D.US 08:00
PROVIDERS: ATTEND Internal Medicine Gastroenterology
DX: K76.0 Fatty (change of) liver, not elsewhere classified (principal)

== ENCOUNTER 2019-06-24 09:12 | Outpatient (CLI) | payer MEDICARE ==
[~2019-06-24] VITALS: Ht 157.5 cm; Wt 81.8 kg
--- NOTE | ~2019-06-24 | HEMODYNAMI ---
PATIENT:MIL SCHULTZ MEDICAL RECORD: [id number] : 44 LOCATION:D.CAT ADMISSION DATE: 06/24/19 Generatedon:06/24/201913:09 Patient name: MIL SCHULTZ Patient #: [id number] SSN: [id number] : 1940 Date of study: 06/24/2019 Page: Of Hemodynamic Procedure Report Patient Data Patient Demographics Procedure consent was obtained First Name: MIL Gender: Female Last Name: MARION : 1940 [facility] Initial: P Age: 78 year(s) Patient #: [id number] Race: SSN: [id number] Additional ID: [id number] Contact details Address: [address] [place] [address] State: [place] City: [place] Zip code: [address] Past Medical History Allergies: No known allergies Admission Admission Data Admission Date: 06/24/2019 Admission Time: 9:12 Arrival Date: 06/24/2019 Arrival Time: 0:00 Admit Source: Other Insurance Payor: Medicare [facility] #: [id number] Height (in.): 62 BSA: 1.85 (m2) Height (cm.): 157.48 BMI: 33.84 (kg/m2) Weight (lbs.): 185 Weight (kg.): 83.91 Procedure Procedure Types Cath Procedure Diagnostic Procedure PPM/ICD Loop Recorder Implant Procedure Description Procedure Date Procedure Date: 06/24/2019 Procedure Start Time: 13:00 Procedure End Time: 13:08 Procedure Staff Name Function Moise Barakat MD Performing Physician Cristi Ramírez RT Monitor Beverly Amaral RT Scrub Caity Akins RN Nurse Procedure Data Cath Procedure Fluoroscopy Diagnostic fluoroscopy Total fluoroscopy Time: 0 time: 0 min min Diagnostic fluoroscopy Total fluoroscopy dose: 0 dose: 0 mGy mGy Contrast Material Contrast Material Type Amount (ml) Isovue 300 0 Estimated blood loss: 2 ml Procedure Complications No complications Procedure Medications Medication Administration Route Dosage 0.9% NaCl I.V. 100 ml/hr Oxygen etCO2 Nasal cannula 2 l/min Lidocaine 2% added to field 20 Ancef (1Gm/50ml NS) I.V.P.B 1 g Versed I.V. 2 mg Fentanyl I.V. 100 mcg Hemodynamics Rest BSA: 1.85 (m2) O2 Consumption: Estimated: 161.64 (ml/min) O2 Consumption indexed : Estimated:87.37 (ml/min/m) Heart Rate: 61 (bpm) Snapshots Pre Cath Intra NCS Post Cath Vital Signs Time Heart Resp SPO2 etCO2 NIBP (mmHg) Rhythm Pain Sedation Rate (ipm) (%) (mmHg) Status Level (bpm) 12:52:27 57 18 98 14 172/70(116) SB 0 (11) 10(A) , No pain 12:56:50 56 11 98 23.7 141/67(98) SB 0 (11) 10(A) , No pain 13:01:12 62 17 99 34.7 139/65(99) SB 0 (11) 10(A) , No pain 13:06:11 59 11 99 14.8 Measuring SB 0 (11) 10(A) , No pain 13:06:27 62 15 99 13.3 143/64(118) SB 0 (11) 10(A) , No pain Medications Time Medication Route Dose Verified Delivered Reason Notes Effectiv eness by by 12:53:58 0.9% NaCl I.V. 100 Moise Carolina used for ml/hr Yuval Tashi procedure MD CUELLAR 12:54:13 Oxygen etCO2 2 Moise Caity used for Nasal l/min [facility] procedure cannula MD CUELLAR 12:54:18 Lidocaine added 20ml Moise Phipps for local 2% to vial [facility] anesthetic field MD KRAMER 12:54:27 Ancef I.V.P.B 1 g Moise Caity used for (1Gm/50ml Yuval Tashi procedure NS) MD CUELLAR 13:00:05 Versed I.V. 2 mg Moise Phipps for YuvalGeovani Barakat sedation MD KRAMER 13:00:09 Fentanyl I.V. 100 Moise Phipps for mcg [facility] sedation MD KRAMER Procedure Log Time Note 12:30:21 Cristi ABDI(R) sent for patient. Start room use. 12:42:17 Procedure Status PPM/ Gen Change/ Lead Revision/ Temp. 12:42:23 Time tracking: Regular hours (M-F 7:00 - 5:00) 12:42:28 Plan of Care:Hemodynamics will remain stable., Cardiac rhythm will remain stable., Comfort level will be maintained., Respiratory function will remain adequate., Patient/ family verbilizes understanding of procedure., Procedure tolerated without complication., Recovers from procedure without complications.. 12:42:35 Admit Source: Other 12:43:31 Informed consent obtained and on chart 12:44:41 Arrival Date: 06/24/2019 12:00:00 AM 12:44:45 Insurance Payor : Medicare 12:45:12 Patient Height : 62 inches 12:45:16 Patient Weight : 185 lbs 12:45:50 [employer] direct marketing representative Lion Green present for procedure. 12:47:14 Patient arrived from Pre/Post Procedure Room to CCL 2. Patient remains on bed/stretcher for procedure. 12:47:17 Warm blankets applied, and alma hugger turned on for patient comfort. 12:47:18 Correct patient and procedure confirmed by team. 12:47:19 ECG and BP/O2 sat monitors applied to patient. 12:47:45 H&P Date Dictated: 06/24/2019 Within 30 days and on chart.. 12:47:46 Pre-procedure instructions explained to patient. 12:47:48 Pre-op teaching completed and patient verbalized understanding. 12:47:53 Family in patients room. 12:47:55 Patient NPO since Midnight. 12:48:08 Patient allergic to No known allergies 12:48:12 Is the patient allergic to Iodine/contrast media? No. 12:48:16 Was the patient premedicated? N/A 12:49:57 Vital chart was started 12:50:00 Full Disclosure recording started 12:53:58 0.9% NaCl 100 ml/hr I.V. was administered by Caity Akins RN; used for procedure; Verbal order read back and verified. 12:54:13 Oxygen 2 l/min etCO2 Nasal cannula was administered by Caity Akins RN; used for procedure; Verbal order read back and verified. 12:54:18 Lidocaine 2% 20ml vial added to field was administered by Moise Barakat MD; for local anesthetic; Verbal order read back and verified. 12:54:27 Ancef (1Gm/50ml NS) 1 g I.V.P.B was administered by Caity Akins RN; used for procedure; Verbal order read back and verified. 12:54:36 Baseline sample Acquired. 12:55:13 Is patient on blood thinner?Yes 12:55:16 ACC The patient was administered the following blood thiners within the last 24 hours: ACCPlavix 12:55:19 Patient diabetic? Yes. 12:55:20 If diabetic: On Metformin? No 12:55:25 Previous problem with sedation/anesthesia? No ? 12:55:26 Snore? No 12:55:27 Sleep apnea? No 12:55:28 Deviated septum? No 12:55:29 Opens mouth fully? Yes 12:55:29 Sticks out tongue? Yes 12:55:32 Airway obstruction? No ? 12:55:35 Dentures? Yes partial IN 12:56:50 IV patent on arrival in left forearm with 0.9% NaCl at [facility]. 12:57:18 Lab results completed and on chart. 12:57:30 Left chest area was prepped with chlora-prep and draped in sterile fashion 12:57:32 Alarms reviewed by Malathi Joiner. 12:59:02 [employer] Linq Loop Recorder opened to sterile field. 12:59:08 --------ALL STOP TIME OUT------ 12:59:09 Final Timeout: patient, procedure, and site verified with staff and physician. All members of the team are in agreement. 12:59:12 Left chest site verified by team. 12:59:16 Fire Safety Assessment: A--An alcohol-based skin anteseptic being used preoperatively., B--The operative or invasive procedure is being performed above the xiphoid process or in the oropharynx., C--Open oxygen or nitrous oxide is being used. 12:59:24 Physical assessment completed. ASA score P 2 - A patient with mild systemic disease as per Moise Barakat MD. 12:59:28 Sedation plan: IV Moderate Sedation Medication:Versed, Fentanyl 13:00:05 Versed 2 mg I.V. was administered by Moise Barakat MD; for sedation; Verbal order read back and verified. 13:00:09 Fentanyl 100 mcg I.V. was administered by Moise Barakat MD; for sedation; Verbal order read back and verified. 13:00:32 Procedure started. 13:00:44 Lidocaine 2% was administered to left subclavicular area by Moise Barakat MD . 13:03:57 Incision made to left subclavicular area. 13:04:06 Linq was inserted subcutaneously to mid chest. 13:04:40 Mid Chest incision was dressed with Dermabond and Steri strips and Mepilex. 13:05:37 Mepilex Dressing ([id number]) opened to sterile field. 13:05:38 Dermabond Pen opened to sterile field. 13:05:50 Procedure ended.(Physican Out) 13:06:35 Fluoroscopy time 00.00 minutes. 13:06:36 Fluoroscopy dose: 0 mGy 13:06:36 Flurop Dose total: 0 13:06:39 Dose Area Product 0 mGy/cm. 13:06:42 Contrast amount:Isovue 300 0ml. 13:06:54 Insertion/operative site no bleeding no hematoma. 13:07:01 Post-procedure physical assessment completed. ASA score P 2 - A patient with mild systemic disease as per Moise Barakat MD. 13:07:03 Post procedure rhythm: sinus rhythm 13:07:15 Estimated blood loss: 2 ml 13:07:19 Post procedure instruction explained to patient.Patient verbalizes understanding. 13:07:19 Patient needs reinforcement of post procedure teaching. 13:07:29 Procedure and supply charges have been captured, reviewed, submitted and are correct. 13:07:32 Procedure Complication : No complications 13:07:44 Vital chart was stopped 13:07:47 Operative report dictated upon procedure completion. 13:07:48 See physician's report for complete and final results. 13:07:50 Report given to Pre/Post Procedure Room. 13:08:40 Patient transfered to Pre/Post Procedure Room with Stretcher. 13:08:43 Procedure ended. 13:08:43 Full Disclosure recording stopped 13:08:48 End room use (Document Last) 13:08:58 End room use (Document Last) 13:09:24 End room use (Document Last) Device Usage Item Name Manufacture Quantity Catalog Hospital Part Current Minimal Lot# / Number Charge Number Stock Stock Serial# Code [employer] Medtronic 1 [id number] 5 [id number] [id number] Linq Loop EXP Recorder Mepilex [place] 1 [id number] 5 [facility] ([id number]) Dermabond [employer] 1 DNX6 [id number] 5 Pen Signature Audit [place] Stage Time Signature Unsigned Intra-Procedure 06/24/2019 Cristi Ramírez 1:08:59 PM RT(R) Intra-Procedure 06/24/2019 Caity Akins 1:09:24 PM RN Intra-Procedure 06/24/2019 Moise Yoo 1:09:44 PM Geovani KRAMER Signatures Performing Physician : Signature : Moise Barakat MD Date : Time : Monitor : Cristi Ramírez RT Signature : Date : Time : Nurse : Caity Akins RN Signature : Date : Time : [place] [address] [place] [address]
[~2019-06-24 09:12] MED LIST changes: -BACLOFEN10 MG PO; -PEPCID40 MG PO; -PROTONIX40 MG PO; -STERAPRED 5MG 125 MG PO; -TOPROL XL25 MG PO
[2019-06-24] MEDS ORDERED: PEPCID40 MG PO (11:16)
[2019-06-24] MEDS ORDERED: PROTONIX40 MG PO (11:16)
[2019-06-24] MEDS ORDERED: BACLOFEN10 MG PO (11:16)
[2019-06-24] MEDS ORDERED: TOPROL XL25 MG PO (11:17)
[2019-06-24] MEDS ORDERED: STERAPRED 5MG 125 MG PO (11:18)
[2019-06-24 11:33] VITALS: BP 151/61; Ht 157.5 cm; Wt 81.8 kg
--- NOTE | 2019-06-24 13:16 | NUR ---
PT RECEIVED VIA STRETCHER FROM ELECTRICAL HIGH TENSION TESTER POST LINQ RECORDER PLACEMENT. PT DROWSY BUT VERBALLY AROUSABLE. PT PLACED ON CARDIAC MONITORS AND O2 VIA NC AT 2L. IV PATENT INFUSING VIA ORDERS TO L ARM PER ORDERS. PT DENIES PAIN OR DISCOMFORT AT THIS TIME. CALL LIGHT IN REACH, FRIEND AT BS.
--- NOTE | 2019-06-24 13:30 | NUR ---
ADRIANNA RODRIGUES RN FROM [employer] AT BS. TEACHING DONE W PT AND FRIEND REGARDING LINQ EQUIPMENT.
--- NOTE | 2019-06-24 13:44 | NUR ---
PT RESTING W EYES CLOSED. HR 56, 129/55, RR 16, SAT 98 ON 2L/NC. CALL LIGHT IN REACH, FRIEND AT BS.
--- NOTE | 2019-06-24 14:15 | NUR ---
DISCHARGE INSTRUCTIONS REVIEWED W PT AND FRIEND. BOTH VERBALIZED UNDERSTANDING. IV REMOVED W CATH INTACT, MONITORS REMOVED AND PT UP TO DRESS FOR DISCHARGE. PT DENIES PAIN AND VS REMAIN STABLE.
--- NOTE | 2019-06-24 14:25 | NUR ---
PT TO BR VIA WC, VOIDING W/O DIFFICULITY 1435 PT DISCHARGED TO FRIEND WAITING IN PRIVATE VEHICLE. PT HAD ALL BELONGINGS AND DISCHARGE PAPERWORK IN HAND.
--- NOTE | 2019-06-30 09:58 | OP ---
PATIENT NAME: MIL SCHULTZ MEDICAL RECORD: [id number] :44 LOCATION:D.CAT ADMISSION DATE: SURGEON: KWABENA FAY MD DATE OF OPERATION: 06/24/2019 PROCEDURE: LINQ placement. DESCRIPTION OF PROCEDURE: After the skin was prepped and draped in the usual sterile fashion, local lidocaine was used for local anesthesia. The LINQ device was placed in the usual fashion using the initial blade and blunt dissection down the tissue plane for placement of the LINQ. This was closed with Steri-Strips. The patient was returned to recovery room in stable condition. IMPRESSION: Successful LINQ placement. ESTIMATED BLOOD LOSS: Minimal. DISPOSITION: To the floor, stable. COMPLICATIONS: None. TRANSINT:[id number] Voice Confirmation ID: [id number] DOCUMENT ID: [id number] KWABENA FAY MD at 0958 CC: [id number] DICTATION DATE: 06/24/19 1310 DRAW TENDER: 06/24/19 1631 DEP CLI 06/24/19 [place] [id number] [place] [address]
== END 2019-06-24 14:35 | disposition home or self-care (01) ==
LOC: D.CATH 09:12
PROVIDERS: ATTEND Internal Medicine Interventional Cardiology
DX: R55 Syncope and collapse (principal)

== ENCOUNTER → 2020-01-12 08:45 | Outpatient (CLI) | payer MEDICARE ==
[2019-06-24 11:33] VITALS: BMI 33.0
[~2020-01-12 08:45] MED LIST changes: +BACLOFEN10 MG PO; +PEPCID40 MG PO; +PROTONIX40 MG PO; +STERAPRED 5MG 125 MG PO; +TOPROL XL25 MG PO
[2020-01-12 10:02] LABS: ALBUMIN 3.8 g/dL (3.4-5.0); BILIRUBIN - DIRECT 0.05 mg/dL (0.00-0.30); BILIRUBIN - INDIRECT 0.19 mg/dL (0.00-1.00); BILIRUBIN - TOTAL 0.24 mg/dL (0.2-1.3); PROTEIN - SERUM 7.9 g/dL (6.4-8.2)
== END | disposition home or self-care (01) ==
LOC: D.LAB 12-09 09:15 → D.US 12-09 09:30 → D.LAB 08:45
PROVIDERS: ATTEND Internal Medicine Gastroenterology
DX: K76.0 Fatty (change of) liver, not elsewhere classified (principal)

== ENCOUNTER → 2020-11-15 08:18 | Outpatient (CLI) | payer MEDICARE ==
[2019-06-24 11:33] VITALS: BMI 33.0
[2020-11-15 08:54] LABS: ALBUMIN 3.7 g/dL (3.4-5.0); BILIRUBIN - DIRECT 0.06 mg/dL (0.00-0.30); BILIRUBIN - INDIRECT 0.19 mg/dL (0.00-1.00); BILIRUBIN - TOTAL 0.25 mg/dL (0.2-1.3); PROTEIN - SERUM 8.1 g/dL (6.4-8.2)
== END | disposition home or self-care (01) ==
LOC: D.US 08:18
PROVIDERS: ATTEND Internal Medicine Gastroenterology
DX: K76.0 Fatty (change of) liver, not elsewhere classified (principal)

== ENCOUNTER → 2021-01-21 08:38 | Outpatient (CLI) | payer MEDICARE ==
[2019-06-24 11:33] VITALS: BMI 33.0
== END | disposition home or self-care (01) ==
LOC: D.HCCECHO 08:38
PROVIDERS: ATTEND Internal Medicine Cardiovascular Disease
DX: R06.09 Other forms of dyspnea (principal); I10 Essential (primary) hypertension